=== PATIENT | female | born 1980 | race Caucasian/White ===

== ENCOUNTER 2023-02-15 14:57 | Outpatient (CLI) | payer OTHER, SELFPAY ==
--- NOTE | ~2023-02-15 | CT_ITS ---
EXAMINATION: CT abdomen pelvis w con DATE: 02/15/2023 15:28 INDICATION: Acute abdominal pain, upper abdomen, flank, pelvis TECHNIQUE: Computed tomography (CT) of the abdomen and pelvis was performed with 100 CC Omnipaque 350 intravenous contrast. Automated exposure control and iterative reconstruction technique were employe d. Exam dose: 669.30 mGy-cm total exam DLP. COMPARISON: None. FINDINGS: The lung bases are clear. Normal heart size. No pericardial or pleural effusion. The liver, gallbladder, bile ducts, pancreas, pancreatic duct, spleen and adrenal glands and kidneys are unremarkable. No urinary tract calculus or hydroureteronephrosis is detected. Normal caliber of the abdominal aorta. No intraperitoneal or retroperitoneal or pelvic mass lesion or adenopathy or ascites is detected. The uterus, adnexal areas and urinary bladder appear normal. Normal appendix. Diverticulosis of the colon; no CT evidence of diverticulitis. There are scattered small bowel air-fl uid levels without small bowel dilatation. No bowel obstruction, bowel wall thickening, pneumatosis o r intraperitoneal free air is detected. Included skeletal structures are unremarkable. IMPRESSION: No significant abnormality Reviewed, dictated and finalized at [facility]. Reviewed, dictated and finalized at [facility]. IMPRESSION: No significant abnormality
== END 2023-02-15 14:58 ==
PROVIDERS: PCP Family Medicine; Visit Provider Family Medicine
DX: R10.9 Unspecified abdominal pain (principal)
CPT/HCPCS: 74177; Q9967

== ENCOUNTER 2023-12-10 15:52 | Outpatient (CLI) | payer OTHER, SELFPAY ==
--- NOTE | ~2023-12-10 | MM_ITS ---
EXAMINATION: MM screening nancy BI w олег HISTORY: Screening TECHNIQUE: Craniocaudal and mediolateral oblique 3-D tomosynthesis images were obtained and synthetic 2-D images were generated. CAD analysis was submitted and interpreted. COMPARISON: No prior mammogram is available for comparison at this institution. BREAST PARENCHYMAL COMPOSITION: Not dense: There are scattered areas of fibroglandular density. FINDINGS: There is no evidence of suspicious mass, calcification, or architectural distortion to sugg est malignancy in either breast. There has been no suspicious interval change. IMPRESSION: 1. No mammographic evidence of malignancy. 2. Recommend routine screening mammography in one year. BI-RADS Category 1: Negative Reviewed, dictated and finalized at [facility].
== END 2023-12-10 15:53 ==
LOC: MICIMG 15:53
PROVIDERS: PCP Nurse Practitioner; Visit Provider Nurse Practitioner
DX: Z12.31 Encounter for screening mammogram for malignant neoplasm of breast (principal)
CPT/HCPCS: 77063; 77067